=== PATIENT | female | born 1960 | race Caucasian/White ===

== ENCOUNTER → 2023-04-12 07:08 | Outpatient (REF) | payer OTHER, SELFPAY | LOC: RAD 07:08 | PROVIDERS: ATTENDING PHYSICIAN Obstetrics & Gynecology Gynecology; FAMILY PHYSICIAN Internal Medicine | DX: Z12.31 Encounter for screening mammogram for malignant neoplasm of breast (principal); R29.810 Facial weakness | CPT/HCPCS: 70450; 77063; 77067 ==

== ENCOUNTER 2023-07-01 15:19 | Emergency (ER) | payer OTHER, SELFPAY ==
[2023-07-01 15:20] VITALS: BP 153/94
[2023-07-01 15:43] LABS: % Basophils 1.1 % (0-2); % Eosinophils 2.8 % (0-6); % Immature Granulocytes 0.4 % (0-0.5); % Lymphocytes 26.4 % (20.5-51.1); % Monocytes 6.5 % (1.7-9.3); % Neutrophils 62.8 % (42.2-75.2); Absolute Basophils 0.2 10^3/uL (0-0.2); Absolute Eosinophils 0.4 10^3/uL (0-0.7); Absolute Immature Granulocytes 0.1 10^3/uL (0-0.05); Absolute Lymphocytes 3.5 10^3/uL (1.2-3.4); Absolute Monocytes 0.9 10^3/uL (0.1-0.6); Absolute Neutrophils 8.2 10^3/uL (1.4-6.5); Hematocrit 41.1 % (37.0-47.0); Hemoglobin 13.8 g/dL (12.0-16.0); Mean Corp Hgb Conc. 33.6 g/dL (33.0-37.0); Mean Corpuscular Hgb 27.3 pg (27.0-31.0); Mean Corpuscular Volume 81.4 fL (81.0-99.0); Mean Platelet Volume 8.7 fL (7.4-10.4); Nucleated Red Blood Cells % 0 %; Platelet Count 392 10^3/uL (130-400); Red Blood Cell Count 5.05 10^6/uL (4.20-5.40); Red Cell Dist. Width 14.8 % (11.5-14.5); White Blood Cell Count 13.1 10^3/uL (4.8-10.8)
[2023-07-01 16:03] LABS: ALT (SGPT) 60 U/L (0-35); AST (SGOT) 50 U/L (14-36); Albumin 4.8 g/dl (3.5-5.0); Alkaline Phosphatase 124 U/L (38-126); Blood Urea Nitrogen 19 mg/dl (7-17); Calcium 10.4 mg/dl (8.4-10.2); Carbon Dioxide 22 mmol/L (22-30); Chloride 105 mmol/L (98-107); Glucose 104 mg/dl (70-99); Potassium 4.3 mmol/L (3.5-5.1); Sodium 139 mmol/L (135-145); Total Bilirubin 0.5 mg/dl (0.2-1.3); Total Protein 8.1 g/dl (6.3-8.2); eGFR > 60.00
[2023-07-01 16:11] LABS: Troponin I < 0.012 ng/ml
--- NOTE | 2023-07-01 16:55 | ED.GENMED ---
History of Present Illness
General
Chief Complaint: Generalized Pain
Source: patient
Exam Limitations: none
Time Seen by Provider: 07/01/23 16:30
Travel History
Have you had any contact with someone who has COVID-19?: No
Do you have any symptoms of coronavirus? Fever > 100 degrees, chills, cough, shortness of breath, sore throat, loss of taste or smell, muscle aches, or headache?: No
History of Present Illness
History of Present Illness:
See MDM
Past History
Past History
ED Past Medical History: GERD, Hypothyroidism and Other (Primary biliary cirrhosis, irritable bowel syndrome)
ED Past Surgical History: None
Social History
Tobacco: Former smoker
Personal:
Living: alone
Employment: Employed
Phy Exam
Physical Exam
Physical Exam:
See MDM
Course
Orders/Labs/Results
Orders:
Orders
07/01/23 15:26
ECG [Electrocardiogram (*1)] Urgent
Reason for Study: Other
Other Reason for Exam: neck pain
07/01/23 15:27
EKG- Treatment ONCE
07/01/23 15:34
Complete Blood Count/With Diff Urgent
Comprehensive Metabolic Panel Urgent
Creatine Phosphokinase Urgent
Comment: CPK ADDED ON BY FLOOR 4:30PM 07-01-23
Troponin I Urgent
07/01/23 16:29
Add On- LAB Urgent
Tests Added?: CPK
Abnormal Lab Results
07/01/23
15:34
WBC 13.1 H 10^3/uL
(4.8-10.8)
RDW 14.8 H %
(11.5-14.5)
Abs Immat Gran (auto) 0.1 H 10^3/uL
(0-0.05)
Absolute Neuts (auto) 8.2 H 10^3/uL
(1.4-6.5)
Absolute Lymphs (auto) 3.5 H 10^3/uL
(1.2-3.4)
Absolute Monos (auto) 0.9 H 10^3/uL
(0.1-0.6)
BUN 19 H mg/dl
(7-17)
Glucose 104 H mg/dl
(70-99)
Calcium 10.4 H mg/dl
(8.4-10.2)
AST 50 H U/L
(14-36)
ALT 60 H U/L
(0-35)
07/01/23 15:34
07/01/23 15:34
Vital Signs
Initial and Last Documented VS:
Initial Vital Signs
Temp Pulse Resp BP Pulse Ox
97.8 F 102 20 153/94 98
07/01/23 15:20 07/01/23 15:20 07/01/23 15:20 07/01/23 15:20 07/01/23 15:20
Last Documented Vital Signs
Temp Pulse Resp BP Pulse Ox
97.8 F 102 20 126/95 97
07/01/23 15:20 07/01/23 15:20 07/01/23 15:20 07/01/23 17:11 07/01/23 17:15
MDM/Problems Addressed
Differential Diagnosis Includes:
HPI and MDM Narrative:
62-year-old female presenting with intermittent pains in her legs, abdomen, back and neck. It has been random over the past 2 days. She assumes this is 'vein pain'. Because she had pain in her left arm at some point, she was worried about
possible heart related pain. Symptoms are not worse with exertion. She then goes on to explain how she had bilateral facial palsy many months ago and is currently being worked up with neurology. She has a slew of autoimmune blood work pending.
She is supposed to get outpatient MRA brain. On my assessment, patient is extremely well-appearing nontoxic. She is ambulating without difficulty. She has no obvious focal deficits. She focuses pain to the left side of her neck. Patient has
questionable tenderness to origin point of mastoid and sternocleidomastoid. She has no tenderness to anterior carotids. Heart regular rate and rhythm. I cannot reproduce any tenderness that she points to. She states she started Lipitor 1.5
months ago. Given that majority of her symptoms are not involving the large muscle groups, discussed less likely rhabdomyolysis. Patient states she wanted to make sure that she does not have a stroke or heart attack. Patient has no focal deficits
and her EKG and troponin are negative
Physical exam
General: Well appearing and non-toxic
HEENT: protecting airway
Neck: supple. No tenderness on exam. No tenderness to carotids
CV: No evidence of cyanosis. Regular rate and rhythm
Resp: No accessory muscle use
Abd: Non-distended
Extremities: No deformities. No tenderness to deep venous palpation of both legs. Distal pulses intact
Neuro: alert. No focal deficits
Psych: Normal affect
Skin: Intact
Problems Addressed including Acute and Chronic Conditions affecting care:
1. Intermittent musculoskeletal pain
Acuity: acute
Prognosis: stable
Details: Given the intermittent nature and without exertion, discussed low risk for significant pathology. Her symptoms are not reproducible. We discussed mild leukocytosis but she is afebrile.
Updates
CPK negative. Discussed less likely side effect of statin
Differential Diagnosis (but not limited to): Adverse side effect of medication, MS, musculoskeletal pain
Testing considered: CT head but she has no focal deficits
Drug therapy (if applicable): OTC meds, please see d/c instruction regarding Rx drugs
Amount and/or Complexity of Data Reviewed
Clinical info obtained from: Patient
External data reviewed: N/A
Labs I independently reviewed (but not limited to): Leukocytosis, troponin negative, normal CPK
Radiology: N/A
Pulse Ox: not hypoxic
EKG independently reviewed: Sinus rhythm, left axis, no STEMI
[place] Support Worker: N/A
Critical Care: N/A
Risk of Complication:
Social Determinants of health: Good social support
Discussed with other providers: N/A
Escalation of Care includes Admit/Obs: After being observed in the Emergency Department, pt stable for discharge.
Occasional wrong word or 'sound a like' substitutions may have occurred due to the inherent limitations of voice recognition software. Read the chart carefully and recognize, using context, where substitutions have occurred.
*Critical Care Note
Total Time (30-74mins, 75-104mins- exclusive of procedures): Not Applicable
ED Attending Note
-
Portions of this chart may have been created with voice recognition software.� Occasional wrong word or��sound alike� substitutions may have occurred due to the inherent limitations of voice recognition software.
Discharge Plan
Departure
Patient Disposition: Home (Routine Discharge)
Date of Disposition: 07/01/23
Time of Disposition: 18:15
Patient with high blood pressure during this ER visit?: No
Discharge Problem:
Muscle pain
Prescriptions:
No Action
liothyronine 50 MCG tablet
50 mcg PO DAILY
fluticasone propionate 1 SPRAY spray,suspension
1 spray intranasal DAILYPRN PRN (Reason: allergies)
Claritin-D
1 tab PO DAILY
Ursodiol
250 mg PO DAILY
Referrals:
Kristy Stroud MD [Family Provider] -
Activity Restrictions/Additional Instructions:
Please return for any worsening symptoms.
You may return at any time if you have further concerns.
Please follow up with your neurologist at the first available appointment, preferably this week. Please do blood work and MRA that was prescribed.
Thank you for choosing [facility].
Interventions
Interventions:
*Risk Screen - Suicide Last Done: 07/01/23 17:12
*General Assessment Last Done: 07/01/23 17:12
*Neglect/Abuse Screening Last Done: 07/01/23 17:12
ED- Fall Risk Assessment Last Done: 07/01/23 17:12
*ED COVID-19 Vaccine History Last Done: 07/01/23 15:20
Discharge Date and Time
Print Language: [place]
[2023-07-01 17:00] LABS: Creatine Phosphokinase 132 U/L (30-135)
[2023-07-01 17:11] VITALS: BP 126/95
[2023-07-01 17:12] VITALS: BMI 30.8
== END 2023-07-01 18:23 | disposition home or self-care (01) ==
LOC: EMR 15:19
PROVIDERS: Emergency Medicine; EMERGENCY PHYSICIAN Student in an Organized Health Care Education/Training Program; FAMILY PHYSICIAN Internal Medicine
DX: M79.10 Myalgia, unspecified site (principal); E03.9 Hypothyroidism, unspecified; K21.9 Gastro-esophageal reflux disease without esophagitis; K58.9 Irritable bowel syndrome, unspecified; Z87.891 Personal history of nicotine dependence
CPT/HCPCS: 99283; 80053; 82550; 84484; 85025; 93005

== ENCOUNTER → 2024-04-16 07:27 | Outpatient (REF) | payer OTHER, SELFPAY | LOC: WDC 07:27 | PROVIDERS: ATTENDING PHYSICIAN Obstetrics & Gynecology Gynecology | DX: Z12.31 Encounter for screening mammogram for malignant neoplasm of breast (principal) | CPT/HCPCS: 77063; 77067 ==

== ENCOUNTER → 2024-05-01 11:00 | Outpatient (REF) | payer SELFPAY | LOC: HWRAD 11:00 | PROVIDERS: ATTENDING PHYSICIAN Internal Medicine; REFERRING PHYSICIAN Naturopath | DX: Z00.00 Encounter for general adult medical examination without abnormal findings (principal); E78.2 Mixed hyperlipidemia | CPT/HCPCS: 75571 ==

== ENCOUNTER → 2024-05-29 14:45 | Outpatient (REF) | payer OTHER, SELFPAY | LOC: RCS 14:45 | PROVIDERS: ATTENDING PHYSICIAN Internal Medicine Cardiovascular Disease; FAMILY PHYSICIAN Internal Medicine | DX: R93.1 Abnormal findings on diagnostic imaging of heart and coronary circulation (principal); R94.31 Abnormal electrocardiogram [ECG] [EKG] | CPT/HCPCS: 93306 ==

== ENCOUNTER → 2024-06-21 08:14 | Outpatient (REF) | payer OTHER, SELFPAY | LOC: RAD 08:14 | PROVIDERS: ATTENDING PHYSICIAN Internal Medicine Transplant Hepatology; FAMILY PHYSICIAN Internal Medicine; REFERRING PHYSICIAN Naturopath | DX: M85.88 Other specified disorders of bone density and structure, other site (principal) | CPT/HCPCS: 77080 ==